=== PATIENT | female | born 1985 | race Caucasian/White ===

== ENCOUNTER 2020-02-08 09:14 | Outpatient (CLI) | payer BC, MEDICARE, MEDICAID, SELFPAY ==
--- NOTE | 2020-02-08 10:30 | NEURO_ITS ---
Patient Number: [id number] Impression: # Complains of numbness of hands status post left carpal tunnel release. # Bilateral Carpal Tunnel Syndrome, left more than right. # No ulnar neuropathy. # Normal needle/EMG exam. Nerve Conduction Studies Anti Sensory Summary Table Stim Site NR Peak (ms) P-T Amp (?V) Site1 Site2 Delta-P (ms) Dist (cm) Alexi (m/s) Left Median Anti Sensory (2-3nd Digit) Wrist 4.0 7.3 Wrist 2-3nd Digit 4.0 14.0 35 Wrist 4.3 16.1 Wrist 2-3nd Digit 4.0 14.0 35 Right Median Anti Sensory (2-3nd Digit) Wrist 4.3 16.5 Wrist 2-3nd Digit 4.3 14.0 33 Wrist 4.3 25.8 Wrist 2-3nd Digit 4.3 14.0 33 Left Radial Anti Sensory (Base 1st Digit) Wrist 2.0 15.5 Wrist Base 1st Digit 2.0 0.0 Right Radial Anti Sensory (Base 1st Digit) Wrist 2.0 35.3 Wrist Base 1st Digit 2.0 0.0 Left Ulnar Anti Sensory (5th Digit) Wrist 2.4 72.4 Wrist 5th Digit 2.4 14.0 58 Right Ulnar Anti Sensory (5th Digit) Wrist 2.5 81.4 Wrist 5th Digit 2.5 14.0 56 Motor Summary Table Stim Site NR Onset (ms) O-P Amp (mV) Site1 Site2 Delta-0 (ms) Dist (cm) Alexi (m/s) Left Median Motor (Abd Poll Brev) Wrist 4.4 3.2 Elbow Wrist 4.4 26.0 59 Elbow 8.8 3.1 Right Median Motor (Abd Poll Brev) Wrist 3.8 3.3 Elbow Wrist 4.7 25.0 53 Elbow 8.5 3.1 Left Ulnar Motor (Abd Dig Minimi) Wrist 2.1 5.6 A Elbow Wrist 4.8 28.0 58 A Elbow 6.9 5.0 Right Ulnar Motor (Abd Dig Minimi) Wrist 2.0 8.1 A Elbow Wrist 5.0 27.0 54 A Elbow 7.0 6.8 F Wave Studies NR F-Lat (ms) L-R F-Lat (ms) Left Median (Mrkrs) (Abd Poll Brev) 26.42 0.33 Right Median (Mrkrs) (Abd Poll Brev) 26.08 0.33 Left Ulnar (Mrkrs) (Abd Dig Min) 25.67 0.50 Right Ulnar (Mrkrs) (Abd Dig Min) 26.17 0.50 EMG Side Muscle Nerve Root Ins Act Fibs Amp Dur Recrt Comment Right 1stDorInt Ulnar C8-T1 Nml Nml Nml Nml Nml Right Ext Indicis Radial (Post Int) C7-8 Nml Nml Nml Nml Nml Right Ext Digitorum Radial (Post Int) C7-8 Nml Nml Nml Nml Nml Right BrachioRad Radial C5-6 Nml Nml Nml Nml Nml Right PronatorTeres Median C6-7 Nml Nml Nml Nml Nml Right Abd Poll Brev Median C8-T1 Nml Nml Nml Nml Nml Left 1stDorInt Ulnar C8-T1 Nml Nml Nml Nml Nml Left Ext Indicis Radial (Post Int) C7-8 Nml Nml Nml Nml Nml Left Ext Digitorum Radial (Post Int) C7-8 Nml Nml Nml Nml Nml Left BrachioRad Radial C5-6 Nml Nml Nml Nml Nml Left PronatorTeres Median C6-7 Nml Nml Nml Nml Nml Left Abd Poll Brev Median C8-T1 Nml Nml Nml Nml Nml MTDD
== END 2020-02-08 09:15 | disposition home or self-care (01) ==
PROVIDERS: Visit Provider Psychiatry & Neurology Neurology
DX: R20.2 Paresthesia of skin (principal); G56.03 Carpal tunnel syndrome, bilateral upper limbs
CPT/HCPCS: 95886; 95911

== ENCOUNTER 2020-04-26 08:45 | Emergency (ER) | payer BC, MEDICARE, MEDICAID, SELFPAY ==
[2020-04-26 08:58] VITALS: BP 129/76; PULSE 91; RESP 16; TEMP 36.8; O2SAT 99
--- NOTE | 2020-04-26 09:06 | ED.GENADULT ---
HPI - General Adult General Chief complaint: Skin/Abscess/Foreign Body Stated complaint: itchy scab Time Seen by Provider: 04/26/20 09:06 Source: patient and RN notes reviewed Mode of arrival: ambulatory Limitations: no limitations History of Present Illness HPI narrative: This is a 34 years old female presented office for evaluation of itchy skin lesion on her arms for 1 week. Admits to similar history in the past a few years ago about the same time. She is unsure how she got it however she think is a combination of working outside, cleaning, and scratching. She has not tried anything [id number]. Denies new medication. Denies sick contact. She did not swim/recently been in the [place]. Related Data Home Medications Medication Instructions Recorded Confirmed famotidine 40 mg PO DAILY 04/26/20 04/26/20 Allergies Allergy/AdvReac Type Severity Reaction Status Date / Time No Known Allergies Allergy Unverified 04/26/20 09:01 Review of Systems Review of Systems: Narrative: CONSTITUTIONAL: Denies fever, chills, sweats. CARDIOVASCULAR: Denies chest pain RESPIRATORY: Denies dyspnea GASTROINTESTINAL: Denies abdominal pain, nausea, vomiting SKIN: Reports itchy rash on upper arms, neckline MUSCULOSKELETAL: Denies joints pain NEUROLOGIC: Denies lightheaded All systems reviewed & are unremarkable except as noted in HPI and below PMFSH Past Medical History Medical History (Updated 04/26/20 @ 09:19 by MADY Robertson) Acid reflux Anxiety Hx of carpal tunnel syndrome Surgical History Surgical History (Updated 04/26/20 @ 09:18 by MADY Robertson) History of bilateral carpal tunnel release Comments At time of signature, I agree with nursing past medical, surgical, social and family history. There is no relevant family history pertinent to the presenting complaint. Exam Narrative: Exam Narrative: GENERAL: This is a well-nourished, well-developed patient, in no apparent distress. NECK: Neck supple, non-tender without lymphadenopathy, masses or thyromegaly. CARDIOVASCULAR: Regular rate and rhythm without murmurs, gallops, or rubs. RESPIRATORY: Clear to auscultation. Breath sounds equal bilaterally. No wheezes, rales, or rhonchi. GASTROINTESTINAL: Abdomen soft, non-tender, nondistended. Bowel sounds are active. No hepato-splenomegaly, or palpable masses. No guarding. SKIN: Upper extremity, posterior aspect noted excoriation, macular to papular erythema, blanchable, nontender or warm to palpation. No rash noted on torso, or lower extremities. NEURO: awake, alert, and oriented to person, place and time. There were no obvious focal neurologic abnormalities. Steady gait EXTREMITIES: Normal range of motion. No edema. [place] Coma Scale Eye Opening: Spontaneous [address] [place] Coma Scale Motor: Obeys Commands 6 [place] Coma Scale Verbal: Oriented 5 Course Vital Signs Vital signs: Vital Signs Temperature 98.2 F 04/26/20 08:58 Pulse Rate 91 04/26/20 08:58 Respiratory Rate 16 04/26/20 08:58 Blood Pressure 129/76 04/26/20 08:58 Pulse Oximetry 99 04/26/20 08:58 Temperature 98.2 F 04/26/20 08:58 Pulse Rate 91 04/26/20 08:58 Respiratory Rate 16 04/26/20 08:58 Blood Pressure 129/76 04/26/20 08:58 Pulse Oximetry 99 04/26/20 08:58 Medical Decision Making MDM Narrative Medical decision making narrative: Discharge instructions reviewed with patient, as well as provided in writing per nursing staff. The instructions also include specific and strict return/GO TO THE ER as well as f/u information. All questions have been answered, and the patient deny any further questions with discharge and discharge plan. Differential Diagnosis Differential Diagnosis: Contact/allergic dermatitis, atopic dermatitis, psoriasis, eczema, cellulitis, tinea, erythema multiforme, viral exanthem Vital Signs Vital Signs: Vital Signs Temperature 98.2 F 04/26/20 08:58 Pulse Rate 91 0
== END 2020-04-26 09:17 | disposition home or self-care (01) ==
PROVIDERS: Emergency Provider Nurse Practitioner; PCP Physician Assistant
DX: L30.9 Dermatitis, unspecified (principal); K21.9 Gastro-esophageal reflux disease without esophagitis
CPT/HCPCS: 99213; G0463

== ENCOUNTER 2021-11-28 09:42 | Outpatient (CLI) | payer OTHER, SELFPAY ==
--- NOTE | 2021-11-28 11:00 | NEURO_ITS ---
Impression: # Complains of numbness of right hand. # Evolving right Carpal Tunnel Syndrome with only sensory component involved. # No ulnar neuropathy. # Normal needle/EMG exam. Nerve Conduction Studies Anti Sensory Summary Table Stim Site NR Peak (ms) P-T Amp (?V) Site1 Site2 Delta-P (ms) Dist (cm) Alexi (m/s) Right Median Anti Sensory (2-3nd Digit) Wrist 4.1 73.8 Wrist 2-3nd Digit 4.1 14.0 34 Wrist 4.0 84.7 Wrist 2-3nd Digit 4.1 14.0 34 Right Radial Anti Sensory (Base 1st Digit) Wrist 2.7 27.3 Wrist Base 1st Digit 2.7 0.0 Right Ulnar Anti Sensory (5th Digit) Wrist 3.0 63.8 Wrist 5th Digit 3.0 14.0 47 Motor Summary Table Stim Site NR Onset (ms) O-P Amp (mV) Site1 Site2 Delta-0 (ms) Dist (cm) Alexi (m/s) Right Median Motor (Abd Poll Brev) Wrist 3.7 5.8 Elbow Wrist 4.7 26.0 55 Elbow 8.4 5.7 Right Ulnar Motor (Abd Dig Minimi) Wrist 2.9 7.0 A Elbow Wrist 4.8 27.0 56 A Elbow 7.7 6.0 F Wave Studies NR F-Lat (ms) L-R F-Lat (ms) Right Median (Mrkrs) (Abd Poll Brev) 26.32 Right Ulnar (Mrkrs) (Abd Dig Min) 27.11 EMG Side Muscle Nerve Root Ins Act Fibs Amp Dur Recrt Comment Right 1stDorInt Ulnar C8-T1 Nml Nml Nml Nml Nml Right Ext Indicis Radial (Post Int) C7-8 Nml Nml Nml Nml Nml Right Ext Digitorum Radial (Post Int) C7-8 Nml Nml Nml Nml Nml Right BrachioRad Radial C5-6 Nml Nml Nml Nml Nml Right PronatorTeres Median C6-7 Nml Nml Nml Nml Nml Right Abd Poll Brev Median C8-T1 Nml Nml Nml Nml Nml MTDD
== END 2021-11-28 09:43 | disposition home or self-care (01) ==
PROVIDERS: PCP Physician Assistant; Visit Provider Orthopaedic Surgery
DX: G56.01 Carpal tunnel syndrome, right upper limb (principal)
CPT/HCPCS: 95886; 95909

== ENCOUNTER 2025-06-29 01:23 | Day surgery (SDC) | payer OTHER, SELFPAY ==
[2025-06-21 09:50] VITALS: BMI 24.0
[2025-06-29 11:17] VITALS: BP 111/81; PULSE 81; RESP 18; TEMP 36.4; O2SAT 100
[2025-06-29 11:18] LABS: BEDSIDEPREGUCG Negative (Negative)
--- NOTE | 2025-06-29 11:27 | WPDANESEPPF ---
Anes - Initial Pre Proc Eval Procedure: Operation Date: 06/29/25 14:45 Proposed Procedures p Esophagogastroduodenoscopy EGD - Enzo Gordon MD Date/Time: 06/29/25 11:27 Surgeon: Enzo Gordon MD Pre Op Diagnosis: GERD Patient Data Age: 39 Gender: F Height: 1.52 m Weight: 54 kg Last Vital Signs Temp 36.4 C 06/29/25 11:17 Pulse 81 06/29/25 11:17 Resp 18 06/29/25 11:17 BP 111/81 06/29/25 11:17 Pulse Ox 100 06/29/25 11:17 O2 Del Method Room Air 06/29/25 11:17 Allergies Allergy/AdvReac Type Severity Reaction Status Date / Time No Known Allergies Allergy Verified 06/21/25 09:46 Home Medications ?Medication ?Instructions ?Recorded ?Confirmed ?Type omeprazole 20 mg capsule,delayed 20 mg PO DAILY 06/09/24 06/29/25 History release hydrocortisone 2.5 % lotion 1 applic topical QID 06/21/25 06/29/25 History Laboratory Tests 06/29/25 11:16 POC Urine HCG, Qual Negative (Negative) Patient hx anesthesia problems: none Family hx anesthesia problems: none Results Review: All pre-operative results and documents have been reviewed as part of the pre-operative evaluation. [facility] Past Medical History Medical History (Updated 06/29/25 @ 11:27 by [place] Jose MD) Tobacco abuse Anxiety Hx of carpal tunnel syndrome Acid reflux Surgical History Surgical History (Updated 06/29/25 @ 11:28 by Montana Jose MD) History of section History of bilateral carpal tunnel release Social History Social History Smoking packs per day: 2 Smoking cigarettes per day: 40.0 Years smoked: 30 Smoking pack-years: 60.00 Smoking status: Current every day smoker Tobacco type: cigarettes and e-cigarettes/vaping Alcohol intake: current Drinks per week: 5 Substance use type: does not use Living arrangements: with family Spiritual care concerns: No Anes - Eval Final PreProcedure Day of Procedure 06/29/25 11:27 Patient weight: normal Heart: regular rate and rhythm Lungs: clear to auscultation Airway: Mallampati scale class II and special considerations poor dentition Neurological: alert and oriented Last oral intake: >/= 8 hours ASA classification: III Emergent: no Anesthetic plan: proceed Anesthesia type and monitoring: general GIVS and standard monitoring Results Review: All pre-operative results and documents have been reviewed as part of the pre-operative evaluation. Informed Consent: The patient's anesthetic plan and its attendant risks and benefits were discussed with the patient/family/POA. Questions were solicited and answers provided to the satisfaction of the patient/family/POA.
[2025-06-29] MEDS: LACTATED RINGERS 1,000 ML 150 ML IV CONT (11:43)
[2025-06-29] MEDS: SIMETHICONE ORAL SUSPENSION 20 MG/0.3 ML 30 ML BOTTLE 1.8 ML PO (11:44)
[2025-06-29] MEDS: BENZOCAINE (*SP) 60 ML SPRAY CAN (HURRICAINE) 1 SPRAY MUCOUS MEM (13:03)
--- NOTE | 2025-06-29 13:03 | PM.IMHP ---
H&P: HPI History of Present Illness Date/Time: 06/29/25 13:03 Chief Complaint: GERD Narrative: the patient suffers from longstanding heartburn, partially controlled with PPIs. Of note, she smoked 2 packs of cigarettes a day. There is occasional dysphagia to solids. She is referred for EGD. Review of Systems Review of Systems: All systems reviewed & are unremarkable except as noted in HPI and below PMFSH Past Medical History Medical History (Updated 06/29/25 @ 13:04 by Enzo Gordon MD) Tobacco abuse Anxiety Hx of carpal tunnel syndrome Acid reflux Surgical History Surgical History (Updated 06/29/25 @ 11:28 by Montana Jose MD) History of section History of bilateral carpal tunnel release Social History Social History Smoking packs per day: 2 Smoking cigarettes per day: 40.0 Years smoked: 30 Smoking pack-years: 60.00 Smoking status: Current every day smoker Tobacco type: cigarettes and e-cigarettes/vaping Alcohol intake: current Drinks per week: 5 Substance use type: does not use Living arrangements: with family Spiritual care concerns: No Meds Home Medications and Allergies Home Medications ?Medication ?Instructions ?Recorded ?Confirmed ?Type omeprazole 20 mg capsule,delayed 20 mg PO DAILY 06/09/24 06/29/25 History release hydrocortisone 2.5 % lotion 1 applic topical QID 06/21/25 06/29/25 History Allergies Allergy/AdvReac Type Severity Reaction Status Date / Time No Known Allergies Allergy Verified 06/21/25 09:46 Vital Signs Vital Signs - 24 hr 06/29/25 11:17 Temperature 97.6 F Pulse Rate 81 Respiratory Rate 18 Blood Pressure 111/81 Pulse Oximetry 100 Oxygen Delivery Room Air Exam Const: General: cooperative and healthy appearing Resp: Effort & Inspection: normal respiratory effort and able to speak in complete sentences Auscultation: clear to auscultation bilaterally Cardio: Rate: regular rate Rhythm: regular rhythm GI: Inspection: normal to inspection GI Palp: No No hepatosplenomegaly present Auscultation: normal bowel sounds Rectal Exam: deferred Skin: General skin exam: normal color Psych: Appearance: grossly normal Mental Status: mental status grossly normal Assessment and Plan Assessment and plan (1) GERD (gastroesophageal reflux disease): Code(s): K21.9 - Gastro-esophageal reflux disease without esophagitis Status: Acute Assessment and Plan: The patient is deemed a good candidate for the procedure. Consent signed. Will proceed.
--- NOTE | 2025-06-29 13:09 | S_PTH ---
PATIENT: Ninfa March LOC: [facility] U#:[id number] AGE/SX: 39/F ROOM: RE06/29/[address]: Enzo Gordon MD : [id number] BED: DIS: 06/29/2025 SPEC #: [id number] RECD: 06/29/25 14:19 STATUS: BRO RESandeep #: [id number] VANESSA: 06/29/25 13:[address]: Enzo Gordon DEPT: [facility] Surgical RECD BY: Roshni Elizabeth ENTERED: 06/29/25 14:20 SP TYPE: Surgical OTHR DR: Samy CadenaMD Tissues: A - Gastric Biopsy B - Gastric Biopsy Procedures: Hematoxylin and Eosin Stain Gross and Microscopic Level 4
[2025-06-29 13:15] VITALS: BP 85/42; PULSE 81; RESP 20; O2SAT 96
[2025-06-29 13:25] VITALS: BP 108/55; BP 82/46; PULSE 72; RESP 19; RESP 20; O2SAT 100; O2SAT 96
== END 2025-06-29 13:54 | disposition home or self-care (01) ==
PROVIDERS: Anesthesiology; PCP Internal Medicine; Referring Provider Internal Medicine; Visit Provider Internal Medicine Gastroenterology
PROC: 0DJ08ZZ Inspection of Upper Intestinal Tract, Via Natural or Artificial Opening Endoscopic (ICD-10-PCS; CPT 43239; principal; 2025-06-29 14:45)
DX: K21.9 Gastro-esophageal reflux disease without esophagitis (principal); K29.50 Unspecified chronic gastritis without bleeding; F41.9 Anxiety disorder, unspecified; F17.210 Nicotine dependence, cigarettes, uncomplicated; F17.290 Nicotine dependence, other tobacco product, uncomplicated; Z98.890 Other specified postprocedural states
CPT/HCPCS: 43239; 88305; J2003; J2704; J7120